=== PATIENT | male | born 1975 | race American Indian/Alaskan Native ===

== ENCOUNTER 2018-06-20 07:51 | Inpatient (IN) | payer SELFPAY ==
[2018-06-20] MEDS ORDERED: TORADOL IV ONE (11:09)
[2018-06-20] MEDS ORDERED: NACL 0.9% 1000 ML 1,000 ML IV ONE (11:11)
[2018-06-20 11:24] LABS: Basophils % (Auto) 0.3 % (0.0-1.8); Eosinophils % (Auto) 0.2 % (0.0-4.3); Hematocrit 49.4 % (35.5-45.6); Hemoglobin 16.6 gm/dl (11.8-15.2); Lymphocytes # (Auto) 1.6 K/mm3 (1.2-5.4); Lymphocytes % (Auto) 20.7 % (13.4-35.0); Mean Corpuscular HGB Conc 34 % (32-34); Mean Corpuscular Hemoglobin 31 pg (28-32); Mean Corpuscular Volume 91 fl (84-94); Monocytes # (Auto) 0.5 K/mm3 (0.0-0.8); Monocytes % (Auto) 7.2 % (0.0-7.3); Platelet Count 205 K/mm3 (140-440); Red Blood Count 5.43 M/mm3 (3.65-5.03); Red Cell Distribution Width 14.2 % (13.2-15.2)
[2018-06-20 11:40] LABS: INR 0.99 (0.87-1.13); Partial Thromboplastin Time 23.5 Sec. (24.2-36.6)
[2018-06-20 11:41] LABS: Alanine Aminotransferase 12 units/L (7-56); Albumin 4.8 g/dL (3.9-5)
[2018-06-20 11:44] LABS: Bilirubin,Urine NEG (Negative); Blood,Urine SM (Negative); Color,Urine Yellow (Yellow); Mucus,Urine FEW /HPF; Protein,Urine <15 mg/dL mg/dL (Negative); Urobilinogen,Urine < 2.0 mg/dL (<2.0)
[2018-06-20 11:48] LABS: Bilirubin,Direct < 0.2 mg/dL (0-0.2)
[2018-06-20] MEDS ORDERED: VANCOMYCIN PHARMACY TO DOSE IV SCH (12:00)
[2018-06-20 12:04] LABS: BUN/Creatinine Ratio 7; Blood Urea Nitrogen 6 mg/dL (9-20); Calcium 9.5 mg/dL (8.4-10.2); Hemolysis Index 13
[2018-06-20 12:10] LABS: Benzodiazepines Screen,Urine PRESUMPTIVE NEGATIVE; Cocaine Screen,Urine PRESUMPTIVE NEGATIVE; Methadone Screen,Urine PRESUMPTIVE NEGATIVE; Opiate Screen,Urine PRESUMPTIVE NEGATIVE
[2018-06-20 12:22] LABS: Amphetamine Screen,Urine PRESUMPTIVE POSITIVE; Cannabinoid Screen,Urine PRESUMPTIVE POSITIVE
[2018-06-20 12:59] LABS: Erythrocyte Sedimentation Rate 1 mm/Hr (0-20)
[2018-06-20] MEDS ORDERED: VANCOMYCIN VIAL 1,750 MG in NACL 0.9% 500 ML 500 ML IV ONE (13:00)
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
--- NOTE | 2018-06-20 15:07 | Magnetic Resonance Report ---
FINAL REPORT EXAM: MR THORACIC SPINE WO CON HISTORY: acute paraparesis TECHNIQUE: MRI of the thoracic spine without IV contrast. PRIORS: None currently available. FINDINGS: Thoracic cord is of normal caliber and signal characteristic. Marrow signal characteristics are appropriate for age. There is no fracture. There is no subluxation. Thoracic levels do not demonstrate significant canal or foraminal narrowing. Prevertebral soft tissue structures are unremarkable. IMPRESSION: No acute findings.
[2018-06-20] MEDS ORDERED: ASPIRIN PO ONE (15:49)
--- NOTE | 2018-06-20 15:56 | Magnetic Resonance Report ---
FINAL REPORT PROCEDURE: MR LUMBAR SPINE WO CON TECHNIQUE: Magnetic resonance imaging of the lumbar spine was performed using standard pulse sequences without contrast material. CPT 16815 HISTORY: Acute paraparesis COMPARISON: No prior studies are available for comparison. FINDINGS: Report the signal intensity and height of the vertebral bodies appears normal. No fracture or subluxation is seen. The conus appears normal. No mass is visualized. The cord appropriately terminates at T12. L1-2: No significant abnormality . L2-3: No significant abnormality . wont L3-4: The height of the disc is mildly decreased. Degenerative signal is seen in the disc. Minimal disc bulge present without focal disc herniation spinal stenosis or compromise of the neural foramina.. L4-5: No significant abnormality . L5-S1: Degenerative signal is seen in the disc. Minimal diffuse disc bulge present without focal disc herniation or spinal stenosis. The neural foramina bilaterally appear adequate. Posterior elements are intact. Mild facet arthritis visualized L5-S1 and the L4-5 articular facets. I do not see evidence of spondylolysis or spondylolisthesis.. Other: None . IMPRESSION: Mild degenerative disc changes visualized L3-4 and the L5-S1 level as described. No focal disc herniation spinal stenosis or compromise of the neural foramina visualized. Mild facet arthritis as described. No other abnormalities are seen.
[2018-06-20] MEDS ORDERED: ROCEPHIN/NS 1 GM/50 ML 1 GM/50 ML BAG IV ONE (16:00)
[2018-06-20] MEDS: VANCOMYCIN/NS 1 GM/250 ML 1 GM/250 ML BAG IV SCH (22:32)
[2018-06-20] MEDS ORDERED: MILK OF MAGNESIA PO PRN (22:50)
[2018-06-20] MEDS: PERCOCET 5/325 PO PRN (23:05)
--- NOTE | 2018-06-20 23:34 | History and Physical Report ---
History of Present Illness Date of examination: 06/20/18 Date of admission: 06/20/18 15:45 Chief complaint: CX/o Weakness and numbnes in both lower extremities sinc AM after waking up. History of present illness: History of Present Illness: 43 y/o black male with no significant PMH comes in for weakness and numbness in both lower extremities since AM.Both symptoms improved to a large extent in the ER.Has residual numbess but weakness resolved completely.No exacerbating or relieving factors.No fever or chills, Past Medical History Previous Medical History?: No Surgical History Past Surgical History?: No Social History Smoking Status: Current Every Day Smoker Substance Use Type: Alcohol Review of Systems ROS: Stated complaint: LEGS WEAK Other details as noted in HPI Constitutional: denies: chills, fever Eyes: denies: eye pain, eye discharge, vision change ENT: denies: ear pain, throat pain Respiratory: denies: cough, shortness of breath, wheezing Cardiovascular: denies: chest pain, palpitations Endocrine: no symptoms reported Gastrointestinal: denies: abdominal pain, nausea, diarrhea Genitourinary: denies: urgency, dysuria Musculoskeletal: denies: back pain, joint swelling, arthralgia Skin: denies: rash, lesions Neurological: as per HPI, weakness (lower extremities), numbness. denies: headache, paresthesias Psychiatric: denies: anxiety, depression Hematological/Lymphatic: denies: easy bleeding, easy bruising Medications and Allergies Allergies Allergy/AdvReac Type Severity Reaction Status Date / Time No Known Allergies Allergy Unverified 06/20/18 08:06 Active Meds: Active Medications Vancomycin HCl (Vancomycin/Ns 1 Gm/250 Ml) 1 gm in 250 mls @ 166.667 mls/hr IV Q8H CHUCK Last Admin: 06/20/18 22:32 Dose: 166.667 mls/hr Magnesium Hydroxide (Milk Of Magnesia) 30 ml PO Q4H PRN PRN Reason: Constipation Last Admin: 06/20/18 23:05 Dose: 30 ml Oxycodone/Acetaminophen (Percocet 5/325) 1 tab PO Q4H PRN PRN Reason: Pain, Moderate (4-6) Last Admin: 06/20/18 23:05 Dose: 1 tab Exam - Constitutional Vitals: Temp Pulse Resp BP Pulse Ox 98.5 F 56 L 22 156/81 97 06/20/18 18:16 06/20/18 18:16 06/20/18 18:16 06/20/18 18:16 06/20/18 18:16 General appearance: Present: no acute distress, well-nourished - EENT Eyes: Present: PERRL ENT: hearing intact, clear oral mucosa - Neck Neck: Present: supple, normal ROM - Respiratory Respiratory effort: normal Respiratory: bilateral: CTA - Cardiovascular Heart rate: 76 Rhythm: regular Heart Sounds: Present: S1 & S2. Absent: rub, click - Extremities Extremities: no ischemia, pulses intact, pulses symmetrical, No edema, Full ROM Peripheral Pulses: within normal limits - Abdominal General gastrointestinal: Present: soft, non-tender, non-distended, normal bowel sounds Male genitourinary: Present: normal - Integumentary Integumentary: Present: clear, warm, dry - Musculoskeletal Musculoskeletal: gait normal, strength equal bilaterally - Psychiatric Psychiatric: appropriate mood/affect, intact judgment & insight, memory intact, cooperative - Neurologic Neurologic: CNII-XII intact, moves all extremities, gait normal - Allied Health Allied health notes reviewed: nursing, case management Results - Labs CBC & Chem 7: 06/20/18 11:07 06/20/18 11:07 Labs: Laboratory Last Values WBC 7.5 K/mm3 (4.5-11.0) 06/20/18 11:07 RBC 5.43 M/mm3 (3.65-5.03) H 06/20/18 11:07 Hgb 16.6 gm/dl (11.8-15.2) H 06/20/18 11:07 Hct 49.4 % (35.5-45.6) H 06/20/18 11:07 MCV 91 fl (84-94) 06/20/18 11:07 MCH 31 pg (28-32) 06/20/18 11:07 MCHC 34 % (32-34) 06/20/18 11:07 RDW 14.2 % (13.2-15.2) 06/20/18 11:07 Plt Count 205 K/mm3 (140-440) 06/20/18 11:07 Lymph % (Auto) 20.7 % (13.4-35.0) 06/20/18 11:07 [place] % (Auto) 7.2 % (0.0-7.3) 06/20/18 11:07 Eos % (Auto) 0.2 % (0.0-4.3) 06/20/18 11:07 Baso % (Auto) 0.3 % (0.0-1.8) 06/20/18 11:07 Lymph # 1.6 K/mm3 (1.2-5.4) 06/20/18 11:07 [place] # 0.5 K/mm3 (0.0-0.8) 06/20/18 11:07 Eos # 0.0 K/mm3 (0.0-0.4) 06/20/18 11:07 Baso # 0.0 K/mm3 (0.0-0.1) 06/20/18 11:07 Seg Neutrophils % 71.6 % (40.0-70.0) H 06/20/18 11:07 Seg Neutrophils # 5.4 K/mm3 (1.8-7.7) 06/20/18 11:07 ESR 1 mm/Hr (0-20) 06/20/18 11:07 PT 13.6 Sec. (12.2-14.9) 06/20/18 11:07 INR 0.99 (0.87-1.13) 06/20/18 11:07 APTT 23.5 Sec. (24.2-36.6) L 06/20/18 11:07 Sodium 142 mmol/L (137-145) 06/20/18 11:07 Potassium 4.0 mmol/L (3.6-5.0) 06/20/18 11:07 Chloride 102.5 mmol/L (98-107) 06/20/18 11:07 Carbon Dioxide 22 mmol/L (22-30) 06/20/18 11:07 Anion Gap 22 mmol/L 06/20/18 11:07 BUN 6 mg/dL (9-20) L 06/20/18 11:07 Creatinine 0.9 mg/dL (0.8-1.5) 06/20/18 11:07 Estimated GFR > 60 ml/min 06/20/18 11:07 BUN/Creatinine Ratio 7 % 06/20/18 11:07 Glucose 102 mg/dL (75-100) H 06/20/18 11:07 Lactic Acid 2.90 mmol/L (0.7-2.0) H* 06/20/18 12:13 Calcium 9.5 mg/dL (8.4-10.2) 06/20/18 11:07 Total Bilirubin 0.40 mg/dL (0.1-1.2) 06/20/18 11:07 Direct Bilirubin < 0.2 mg/dL (0-0.2) 06/20/18 11:07 Indirect Bilirubin 0.2 mg/dL 06/20/18 11:07 AST 18 units/L (5-40) 06/20/18 11:07 ALT 12 units/L (7-56) 06/20/18 11:07 Alkaline Phosphatase 62 units/L (35-129) 06/20/18 11:07 C-Reactive Protein 0.30 mg/dL (0.00-1.30) 06/20/18 11:07 Total Protein 7.4 g/dL (6.3-8.2) 06/20/18 11:07 Albumin 4.8 g/dL (3.9-5) 06/20/18 11:07 Albumin/Globulin Ratio 1.8 % 06/20/18 11:07 Urine Color Yellow (Yellow) 06/20/18 11:30 Urine Turbidity Clear (Clear) 06/20/18 11:30 Urine pH 6.0 (5.0-7.0) 06/20/18 11:30 Ur Specific [place] 1.014 (1.003-1.030) 06/20/18 11:30 Urine Protein <15 mg/dl mg/dL (Negative) 06/20/18 11:30 Urine Glucose (UA) Neg mg/dL (Negative) 06/20/18 11:30 Urine Ketones Tr mg/dL (Negative) 06/20/18 11:30 Urine Blood Sm (Negative) 06/20/18 11:30 Urine Nitrite Neg (Negative) 06/20/18 11:30 Urine Bilirubin Neg (Negative) 06/20/18 11:30 Urine Urobilinogen < 2.0 mg/dL (<2.0) 06/20/18 11:30 Ur Leukocyte Esterase Neg (Negative) 06/20/18 11:30 Urine WBC (Auto) 1.0 /HPF (0.0-6.0) 06/20/18 11:30 Urine RBC (Auto) 4.0 /HPF (0.0-6.0) 06/20/18 11:30 U Epithel Cells (Auto) < 1.0 /HPF (0-13.0) 06/20/18 11:30 Urine Mucus Few /HPF 06/20/18 11:30 Urine Opiates Screen Presumptive negative 06/20/18 11:30 Urine Methadone Screen Presumptive negative 06/20/18 11:30 Ur Barbiturates Screen Presumptive negative 06/20/18 11:30 Ur Phencyclidine Scrn Presumptive negative 06/20/18 11:30 Ur Amphetamines Screen Presumptive positive 06/20/18 11:30 U Benzodiazepines Scrn Presumptive negative 06/20/18 11:30 Urine Cocaine Screen Presumptive negative 06/20/18 11:30 U Marijuana (THC) Screen Presumptive positive 06/20/18 11:30 Drugs of Abuse Note Disclamer 06/20/18 11:30 - Imaging and Cardiology EKG: report reviewed Imaging and Cardiology: MRi No acute findings except Mild arthritis No paraspinal abcess. Assessment and Plan Advance Directives: Yes (Full code) VTE prophylaxis?: Chemical Plan of care discussed with patient/family: Yes - Patient Problems (1) Elevated lactic acid level Current Visit: Yes Status: Acute Plan to address problem: Clinical picture does not fit with sepsis, IV Rocephin for possible meningitis though very unlikely. Observe for 24 hours and Discharge as necessary (2) Paraparesis Current Visit: Yes Status: Acute Plan to address problem: I am more in favor of conversion reaction Neuro consult requestted mental health consult for poly substance abuse Amphetamines causing reaction?? (3) Polysubstance abuse Current Visit: Yes Status: Chronic Plan to address problem: On Ampphetamines and THC Counselled (4) DVT prophylaxis Current Visit: Yes Status: Acute Plan to address problem: On Lovenox
[2018-06-20] MEDS ORDERED: MORPHINE IV PRN (23:44)
[2018-06-20] MEDS ORDERED: TYLENOL PO PRN (23:44)
[2018-06-20] MEDS ORDERED: DILAUDID IV PRN (23:44)
[2018-06-20] MEDS ORDERED: SODIUM CHLORIDE FLUSH SYRINGE 10 ML IV PRN (23:44)
[2018-06-20] MEDS ORDERED: ZOFRAN IV PRN (23:44)
[2018-06-20] MEDS ORDERED: D5NS 1,000 ML IV SCH (23:45)
[2018-06-21] MEDS: VANCOMYCIN/NS 1 GM/250 ML 1 GM/250 ML BAG IV SCH (06:00)
[2018-06-21] MEDS: PERCOCET 5/325 PO PRN ×3 (08:03→22:56)
[2018-06-21] MEDS ORDERED: ROCEPHIN/NS 2 GM/100 ML 2 GM/100 ML BAG IV SCH (10:00)
[2018-06-21] MEDS ORDERED: NACL 0.9% 1000 ML 1,000 ML IV ONE (10:42)
[2018-06-21] MEDS: PEPCID IV SCH ×2 (10:53→22:59)
[2018-06-21] MEDS: SODIUM CHLORIDE FLUSH SYRINGE 10 ML IV SCH ×2 (10:58→23:44)
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
--- NOTE | 2018-06-21 15:54 | Cat Scan Report ---
FINAL REPORT PROCEDURE: CT ABDOMEN PELVIS WO CON TECHNIQUE: Computerized axial tomography of the abdomen and pelvis was performed without intravenous contrast. This study is performed without intravascular contrast material and its sensitivity for abdominal and pelvic pathology, including neoplasms, inflammation, abscess, free fluid, thrombosis, arterial dissection and infarction, is reduced compared with a contrast enhanced study. HISTORY: severe constipation COMPARISON: No prior studies are available for comparison. FINDINGS: Lower Lung ferreira: No abnormality is seen Upper Abdomen: The liver, the gallbladder, the adrenal glands, the unenhanced images of the pancreas and the spleen are unremarkable. Kidneys, Ureters and Urinary bladder: Kidneys and ureters are unremarkable. Urinary bladder is markedly distended otherwise is unremarkable. Calcifications seen lower pelvis appear to represent phleboliths. Retroperitoneum: Abdominal aorta appears normal. Nonspecific subcentimeter lymph nodes are seen in the retroperitoneum. No pathologically enlarged lymph nodes are identified. Bowel: Bowel loops are unremarkable. No evidence of bowel obstruction ascites or free intraperitoneal gas. Normal-appearing appendix is seen in the right lower quadrant. I do not see changes that would suggest constipation. Reproductive organs: The prostate gland does not appear to be significantly enlarged. Other: No acute bony abnormalities are dense IMPRESSION: No acute abnormalities are identified. Bowel loops are unremarkable. I do not see evidence of constipation. Urinary bladder significantly distended otherwise is unremarkable. No other abnormalities are identified..
[2018-06-21] MEDS ORDERED: LOVENOX SUB-Q SCH (22:00)
[2018-06-22] MEDS: NACL 0.9% 1000 ML 1,000 ML IV SCH ×2 (02:37→11:25)
--- NOTE | 2018-06-22 08:29 | Progress Note ---
Subjective Date of service: 06/22/18 Interval history: MRI of brain ordered I am concerned this could be MS vs spinal radiculopathy testing awaited Objective - Vital Sign Vital Signs - 12hr 06/21/18 06/22/18 23:50 05:55 Temperature 98.5 F 98.5 F Pulse Rate 62 67 Respiratory 18 20 Rate Blood Pressure 128/85 136/78 O2 Sat by Pulse 99 98 Oximetry - Laboratory Findings CBC and BMP: 06/20/18 11:07 06/20/18 11:07 Abnormal Lab Findings: Abnormal Labs 06/20/18 06/20/18 06/20/18 11:07 11:07 11:07 RBC 5.43 H Hgb 16.6 H Hct 49.4 H Seg Neutrophils % 71.6 H APTT 23.5 L BUN 6 L Glucose 102 H Lactic Acid Total Creatine Kinase 06/20/18 06/20/18 06/21/18 11:07 12:13 16:09 RBC Hgb Hct Seg Neutrophils % APTT BUN Glucose Lactic Acid 3.00 H* 2.90 H* Total Creatine Kinase 1000 H
[2018-06-22] MEDS: SODIUM CHLORIDE FLUSH SYRINGE 10 ML IV SCH (11:17)
[2018-06-22] MEDS: PEPCID IV SCH (11:17)
[2018-06-22] MEDS: PERCOCET 5/325 PO PRN (11:21)
--- NOTE | 2018-06-22 11:46 | Magnetic Resonance Report ---
MRI OF THE BRAIN WITHOUT CONTRAST: HISTORY: Seizure PROCEDURE: Multiplanar, multisequence MR imaging of the brain without IV contrast was performed. FINDINGS: No relevant comparison at this facility. The brain parenchyma signal intensity and its garcia white interface are within normal limits on all sequences. No evidence for acute ischemia, hemorrhage or mass. No chronic infarct or extra-axial fluid collection. The midline structures are central. The basal cisterns are patent. Normal ventricular size. The orbital cavities and sella turcica demonstrate no abnormality. Mucous retention cysts measuring up to 2 cm are noted in both inferior maxillary sinuses. The remaining sinuses are adequately aerated. IMPRESSION: Normal non-enhanced MRI of the brain. Mild chronic maxillary sinus disease.
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
[2018-06-22 13:19] VITALS: BP 127/74
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
== END 2018-06-22 16:36 | disposition home or self-care (01) | DRG 558 ==
LOC: ED 07:51 → 3A 15:45
PROVIDERS: ADMIT Internal Medicine; ATTEND Internal Medicine
DX: M62.82 Rhabdomyolysis (principal); G82.20 Paraplegia, unspecified; R79.89 Other specified abnormal findings of blood chemistry; R29.898 Other symptoms and signs involving the musculoskeletal system; F17.200 Nicotine dependence, unspecified, uncomplicated; F15.10 Other stimulant abuse, uncomplicated; M54.10 Radiculopathy, site unspecified
CPT/HCPCS: 36415; 70551; 72146; 72148; 74176; 80048; 80074; 80307; 81001; 82140; 82550; 83036; 85025; 85610; 85652; 85730; 86140; 87040; 87086; J0696; J1650; J1885; J3370; J7030; J7040; J7042